=== PATIENT | female | born 1965 | race Caucasian/White ===

== ENCOUNTER 2018-02-07 19:01 | Emergency (ER) | payer BC ==
[~2018-02-07] VITALS: Ht 160 cm; Wt 101.1 kg
[~2018-02-07 19:01] MED LIST: ALBU1AER9 INH; ASPI1TAB48 PO; ATOR-22 PO; CHOL100027 PO; CYAN1CAP3 PO; LISI-729 PO; MULTTAB58 PO; NTRSLP4 SL; OMEGCAP2 PO; TPRSR50 PO
[2018-02-07 19:05] VITALS: TEMP 36.8; Ht 160 cm; Wt 101.1 kg
--- NOTE | 2018-02-07 19:28 | EMERGENCY ROOM VISIT NOTE ---
History Report prepared by Phil: Herrera Oshea Under the Supervision of: Dr. Fredo Evans M.D. First contact with patient: 19:12 Chief Complaint: HYPERTENSION Stated Complaint: HIGH BP 192/105 History of Present Illness The patient is a 52 year old white female with a past medical history of HLD, HTN, generalized anxiety disorder, hysterectomy, left hip replacement who presents to the ED with a cc of constant hypertension beginning earlier today. Pt was sitting down crocheting when she felt her blood pressure elevated. She states her blood pressure was 192/105 when she checked. Positive headache and red face three days ago. Pt notes she is currently taking Lisinopril, fish oil, metoprolol, vitamin D, and vitamin B. Negative taking nasal decongestants, alcohol use, drug use, stimulant use, chest pain, sinus congestion, sinus pressure, cough. Source of History: patient Onset: earlier today Symptom Intensity: 192/105 Quality: other (HTN) Timing: constant Associated Symptoms: + headache, No cough, No chest pain Note: Associated symptoms: red face three days ago Denies: sinus congestion, sinus pressure Review of Systems See HPI for pertinent positives and negatives. A total of ten systems were reviewed and were otherwise negative. Past Medical & Surgical Medical Problems: (1) Degeneration of cervical intervertebral disc (2) Dilation and curettage (3) Essential hypertension (4) Generalized anxiety disorder (5) Hyperlipidemia (6) Hysterectomy (7) Irritable colon (8) Oophorectomy (9) OSTEOARTHROSIS-MULT SITE (10) Vitamin B12 deficiency (non anemic) (11) Vitamin D deficiency Surgical Problems: (1) History of left hip replacement Family History Heart disease Social History Smoking Status: Never Smoker Marital Status: Occupation Status: unemployed Current/Historical Medications Scheduled Aspirin (Aspirin Low Dose), 81 MG PO DAILY Atorvastatin (Lipitor), 1 TAB PO DAILY Cholecalciferol (Vitamin D 1000 Unit), 2,000 INTER.UNIT PO DAILY Cyanocobalamin (B-12), 1,000 MCG PO DAILY Lisinopril (Zestril), 5 MG PO DAILY Metoprolol Succinate (Metoprolol Succinate ER), 50 MG PO DAILY Multiple Vitamin (Multivitamin), 1 TAB PO DAILY [place]-3 Fatty Acids (Fish Oil), 1,200 MG PO BID Scheduled PRN Albuterol (Proair Hfa), 2 PUFFS INH QID PRN for Shortness of Breath Nitroglycerin (Nitrostat), 0.4 MG SL UD PRN for Chest Pain Allergies Coded Allergies: Prednisone (Verified Adverse Reaction, Mild, 0, 02/07/18) palpitations Physical Exam Vital Signs Date Time Temp Pulse Resp B/P (MAP) Pulse Ox O2 Delivery O2 Flow Rate FiO2 02/07/18 19:24 94 20 182/86 Room Air 02/07/18 19:05 36.8 99 16 190/100 99 Room Air Physical Exam GENERAL: Awake, alert, well-appearing, NAD HENT: Normocephalic, atraumatic. EYES: Normal conjunctiva. Sclera non-icteric. PERRL. No anisocoria. NECK: Supple. No nuchal rigidity. FROM. RESPIRATORY: CTAB, no rhonchi, wheezing, crackles CARDIAC: RRR, no MRG ABDOMEN: Soft, NTND, BS+ MSK: No chest wall TTP, no LE edema NEURO: CN 2-12 intact, 5/5 upper and lower extremity strength, no dysmetria, no drift, good finger to nose, no sensory deficits. Finger count grossly normal. SKIN: No rash or jaundice noted. Medical Decision & Procedures Medications Administered Medications (Trade) Dose Ordered Sig/Quan Route Start Time Stop Time Status Last Admin Dose Admin Acetaminophen (Tylenol Tab) 1,000 mg NOW STAT PO 02/07/18 19:33 02/07/18 19:34 DC 02/07/18 19:45 1,000 MG ED Course 1915: The patient was evaluated in room C06. A complete history and physical exam was performed. 1944: I reevaluated the patient. Discussed results and discharge instructions: she verbalized understanding and agreement. The patient is ready for discharge. Medical Decision Nursing notes reviewed. Ancillary studies and prior records reviewed. The patient is a 52 year old white female with a past medical history of HLD, HTN, generalized anxiety disorder, hysterectomy, left hip replacement who presents to the ED with a cc of constant hypertension beginning earlier today. Differential diagnosis: Etiologies such as benign hypertension, hypertensive emergency, cardiovascular pathology, pheochromocytoma, electrolyte abnormality, renal disease, endorgan damage, as well as others were entertained. Patient was seen and evaluated the bedside. Patient was complaining of some mild headache. Patient describes it as posterior. Patient does not take any blood thinning medications and the patient states that she noticed that she has some elevated blood pressure so came in to get rechecked. Patient has only noticed that her blood blood pressures been elevated today. Of note the patient did have a hip replacement back in October and the patient has put on some weight. Patient states that she has gained approximately 15 pounds. Patient's neurologic exam is completely unremarkable and the patient has no visual deficits. The patient was given some medication for headache. Patient states that she has been compliant with her medications. We did make the decision to go up on her Toprol from 50 mg to 100 daily. Patient was told to follow-up with her primary care physician discuss increasing her lisinopril after repeat checks. Patient was also counseled on diet and physical activity as losing weight would improve her blood pressure and her overall health. Patient was deemed suitable for outpatient follow-up and treatment at this time. I do not believe that she requires a CT scan given that her headache is not severe and the patient did not suffer any trauma. Patient also has a nonfocal neurologic exam and no infectious symptoms. Patient was given strict follow-up, discharge, and return precautions. All questions were answered. Patient was deemed suitable for outpatient follow-up at this time. Patient agreed with the plan of care and was safely discharged home. Medication Reconcilliation Current Medication List: was personally reviewed by me Blood Pressure Screening Patient's blood pressure: Elevated blood pressure Blood pressure disposition: Referred to PCP Impression Primary Impression: Hypertension Scribe Attestation The scribe's documentation has been prepared under my direction and personally reviewed by me in its entirety. I confirm that the note above accurately reflects all work, treatment, procedures, and medical decision making performed by me. Departure Information Dispostion Home / Self-Care Referrals Juan Luis Mcknight (PCP) Forms HOME CARE DOCUMENTATION FORM, IMPORTANT VISIT INFORMATION, WORK / SCHOOL INSTRUCTIONS Patient Instructions Hypertension Nv, My [facility] Additional Instructions Please return to the emergency department if you have worsening or recurrent symptoms not amenable to at-home treatment. Please call for a follow-up appointment with her primary care physician. Please take your medications as prescribed. If you have other concerns and/or complaints please feel free to also call your primary care physician's office or return the ED for further evaluation, management, and treatment. You were found to have an elevated blood pressure today (>120 sytolic or >90 diastolic). Per medicare guidelines, you need to follow up with this blood pressure screening with your Primary Care Physician (PCP). For a new PCP call [phone]. You received narcotic or benzodiazepene medication while in the emergency room today. This is an addictive medication that may cause drowziness as well as constipation. Do not drive, operate heavy machinery, or drink alcohol under the influence of this medication. Make sure to avoid things like Sudafed or phenylephrine if you ever have any sinus congestion as this can raise her blood pressure. You may start taking 2 of your Toprol 50 mg daily. Make a follow-up appoint with your PCP in order to discuss further intervention and treatment with regard to your blood pressure. Please also continue to do the great work that you have already started with improving her diet and physical activity. Doing this is not only beneficial now but for your overall health and will improve your blood pressure. Take your medications as prescribed. If taking an antibiotic consider taking a probiotic and/or eating yogurt, but at the least, please take with food as it can cause upset stomach. If culture results are not available at discharge, if they are positive for concern of infection, you will be informed of the results as soon as they are available. If you were seen between 11pm and 7AM all radiology reads will be re-read by our in house staff. If any major discrepancies are discovered, you will be notified. You have been examined and treated today on an emergency basis only. This is not a substitute for, or an effort to provide, complete comprehensive medical care. It is impossible to recognize and treat all injuries or illnesses in a single emergency department visit. It is therefore important that you follow up closely with [facility], your PCP, and/or your specialist(s). Call as soon as possible for an appointment. Thank you for your time and consideration. I look forward to speaking with you again soon. Please don't hesitate to call us if you have any questions. Problem Qualifiers Primary Impression: Hypertension Hypertension type: unspecified Qualified Codes: I10 - Essential (primary) hypertension
[2018-02-07] MEDS ORDERED: ACETAMINOPHEN 500 MG TAB PO STA (19:33)
[2018-02-07 19:58] VITALS: BP 142/84; PULSE 84; O2SAT 96
== END 2018-02-07 20:02 | disposition home or self-care (01) ==
LOC: C.EDB 19:02 → C.EDC 20:02
DX: I10 Essential (primary) hypertension (principal); E78.5 Hyperlipidemia, unspecified; F41.1 Generalized anxiety disorder; Z90.710 Acquired absence of both cervix and uterus; Z96.642 Presence of left artificial hip joint; E53.8 Deficiency of other specified B group vitamins; Z79.82 Long term (current) use of aspirin; Z79.899 Other long term (current) drug therapy; Z88.8 Allergy status to other drugs, medicaments and biological substances